=== PATIENT | male | born 1950 | race Caucasian/White ===

== ENCOUNTER 2016-08-28 03:45 | Emergency (ER) | payer OTHER ==
[~2016-08-28] VITALS: Ht 193 cm; Wt 99.4 kg
[2016-08-28 05:25] LABS: BLOOD UREA NITROGEN 14 mg/dL (7-18)
[2016-08-28] MEDS ORDERED: BACITRACIN ZINC OINT 500U/GM, 0.9 GM ONE (05:35)
[2016-08-28 06:30] VITALS: BP 125/83
== END 2016-08-28 07:09 | disposition home or self-care (01) ==
LOC: ED 06:15
DX: S20.211A Contusion of right front wall of thorax, initial encounter (principal); F10.20 Alcohol dependence, uncomplicated; S50.311A Abrasion of right elbow, initial encounter; S80.812A Abrasion, left lower leg, initial encounter; W18.30XA Fall on same level, unspecified, initial encounter; Y93.89 Activity, other specified; Y99.8 Other external cause status; Y92.89 Other specified places as the place of occurrence of the external cause
CPT/HCPCS: 36415; 70450; 71020; 80048; 82040; 85025

== ENCOUNTER 2016-10-23 08:51 | Inpatient (IN) | payer OTHER ==
[~2016-10-23] VITALS: Ht 193 cm; Wt 100.3 kg
[2016-10-23] MEDS ORDERED: MAGNESIUM SULFATE 1 GM, THIAMINE 100 MG, FOLIC ACID 1 MG, MVI ADULT 10 ML in SODIUM CHL... IV ONE (09:30)
[2016-10-23] MEDS ORDERED: SODIUM CHLORIDE FLUSH 10ML SYR IVF ONE (09:30)
[2016-10-23] MEDS ORDERED: LORazepam 2 MG/ML, 1ML IVPush ONE (09:30)
[2016-10-23] MEDS ORDERED: LORazepam 2 MG/ML, 1ML ONE (10:07)
[2016-10-23 10:11] LABS: ASPARTATE AMINO TRANSFERASE 116 U/L (15-37); BLOOD UREA NITROGEN 16 mg/dL (7-18)
[2016-10-23] MEDS ORDERED: MAGNESIUM SULFATE PMX 2GM/50ML 50 ML IV ONE (10:30)
[2016-10-23] MEDS ORDERED: FUROSEMIDE 40 MG/4 ML IV ONE (10:30)
[2016-10-23] MEDS ORDERED: FUROSEMIDE 40 MG/4 ML ONE (10:30)
[2016-10-23 11:03] LABS: DIFF TOTAL CELLS COUNTED 100 CELL DIFF
[2016-10-23 11:13] LABS: ANISOCYTOSIS 1+; POLYCHROMASIA 2+
[2016-10-23] MEDS ORDERED: DOCUSATE 100 MG CAPSULE PO PRN (11:30)
[2016-10-23 11:36] LABS: VERIFY COUNTS? YES
[2016-10-23] MEDS ORDERED: LIDOCAINE 1%, 20ML ONE (11:36)
[2016-10-23 11:54] VITALS: BP 116/76
[2016-10-23] MEDS ORDERED: LORazepam 0.5MG TABLET PO PRN (12:00)
[2016-10-23] MEDS ORDERED: LORazepam 1MG TABLET PO PRN ×4 (12:00)
[2016-10-23] MEDS ORDERED: LORazepam 2 MG/ML, 1ML IV PRN ×5 (12:00)
[2016-10-23 12:37] VITALS: BP 108/70
[2016-10-23 12:54] LABS: HEPATITIS C VIRUS ANTIBODY Nonreactive (Nonreactive)
[2016-10-23] MEDS: SPIRONOLACTONE 25 MG TABLET PO SCH (12:57)
[2016-10-23] MEDS: ENOXAPARIN 40 MG/0.4 ML SQ SCH (12:57)
[2016-10-23] MEDS: PANTOPRAZOLE 40 MG IV IVPush SCH (12:57)
[2016-10-23] MEDS ORDERED: MULTIVITAMIN 1 TABLET PO ONE (14:00)
[2016-10-23] MEDS ORDERED: FOLIC ACID 1 MG TABLET PO ONE (14:00)
[2016-10-23] MEDS ORDERED: THIAMINE 100MG TABLET PO ONE (14:00)
[2016-10-23 18:35] VITALS: BP_SYST 88; BP_SYST 89; BP_DIAS 53; BP_DIAS 57
[2016-10-24 01:35] VITALS: BP 91/51
[2016-10-24 05:10] LABS: ASPARTATE AMINO TRANSFERASE 92 U/L (15-37); BLOOD UREA NITROGEN 16 mg/dL (7-18)
[2016-10-24 05:36] LABS: DIFF TOTAL CELLS COUNTED 100 CELL DIFF
[2016-10-24 05:40] LABS: ANISOCYTOSIS 1+; POLYCHROMASIA 1+; VERIFY COUNTS? YES
[2016-10-24 07:05] VITALS: BP 96/61
[2016-10-24] MEDS: FOLIC ACID 1 MG TABLET PO SCH (08:08)
[2016-10-24] MEDS: MULTIVIT.W/IRON, MINERALS ORAL SOL PO SCH (08:08)
[2016-10-24] MEDS: THIAMINE 100MG TABLET PO SCH (08:08)
[2016-10-24] MEDS: SPIRONOLACTONE 25 MG TABLET PO SCH (08:08)
[2016-10-24] MEDS: FUROSEMIDE 20 MG/2 ML IV SCH (08:08)
[2016-10-24] MEDS: PANTOPRAZOLE 40 MG IV IVPush SCH (08:08)
[2016-10-24] MEDS ORDERED: MAGNESIUM SULFATE PMX 2GM/50ML 50 ML IV ONE (09:30)
[2016-10-24] MEDS: ENOXAPARIN 40 MG/0.4 ML SQ SCH (11:41)
[2016-10-24 12:54] VITALS: BP 95/61
[2016-10-24] MEDS ORDERED: POTASSIUM PHOSPHATE 22 MEQ in SODIUM CHLORIDE 0.9% 500 ML IV ONE (14:00)
[2016-10-24 20:49] VITALS: BP 97/59
[2016-10-25 02:00] VITALS: BP 98/66
[2016-10-25 05:42] LABS: ASPARTATE AMINO TRANSFERASE 85 U/L (15-37); BLOOD UREA NITROGEN 15 mg/dL (7-18)
[2016-10-25 06:35] VITALS: BP 100/65
[2016-10-25] MEDS: SPIRONOLACTONE 25 MG TABLET PO SCH (08:38)
[2016-10-25] MEDS: THIAMINE 100MG TABLET PO SCH (08:38)
[2016-10-25] MEDS: PANTOPROZOLE 40MG TABLET PO SCH (08:38)
[2016-10-25] MEDS: FOLIC ACID 1 MG TABLET PO SCH (08:38)
[2016-10-25] MEDS: MULTIVIT.W/IRON, MINERALS ORAL SOL PO SCH (08:38)
[2016-10-25] MEDS: FUROSEMIDE 20 MG/2 ML IV SCH (08:41)
[2016-10-25 12:03] VITALS: BP 104/67
[2016-10-25] MEDS: ENOXAPARIN 40 MG/0.4 ML SQ SCH (17:15)
[2016-10-25 20:31] VITALS: BP 105/65
[2016-10-26 00:38] VITALS: BP 102/66
[2016-10-26 05:40] LABS: ASPARTATE AMINO TRANSFERASE 85 U/L (15-37); BLOOD UREA NITROGEN 14 mg/dL (7-18)
[2016-10-26 07:08] VITALS: BP 98/56
[2016-10-26] MEDS ORDERED: SPIR25TA PO (07:57)
[2016-10-26] MEDS ORDERED: FURO-92 PO (07:57)
[2016-10-26] MEDS: THIAMINE 100MG TABLET PO SCH (08:38)
[2016-10-26] MEDS: SPIRONOLACTONE 25 MG TABLET PO SCH (08:38)
[2016-10-26] MEDS: FOLIC ACID 1 MG TABLET PO SCH (08:38)
[2016-10-26] MEDS: PANTOPROZOLE 40MG TABLET PO SCH (08:38)
[2016-10-26] MEDS: FUROSEMIDE 20 MG/2 ML IV SCH (08:39)
[2016-10-26] MEDS: MULTIVIT.W/IRON, MINERALS ORAL SOL PO SCH (08:39)
[2016-10-26 12:15] VITALS: BP 102/63
== END 2016-10-26 13:26 | disposition home or self-care (01) | DRG 432 ==
LOC: ED 10:11 → EDIP 10:35 → 4WST 11:41
PROVIDERS: ADMIT Hospitalist; ATTEND Internal Medicine
PROC: 0W9G3ZZ Drainage of Peritoneal Cavity, Percutaneous Approach (ICD-10-PCS; principal; 2016-10-24)
DX: K70.31 Alcoholic cirrhosis of liver with ascites (principal); K85.90 Acute pancreatitis without necrosis or infection, unspecified; E43 Unspecified severe protein-calorie malnutrition; R65.10 Systemic inflammatory response syndrome (SIRS) of non-infectious origin without acute organ dysfunction; E87.1 Hypo-osmolality and hyponatremia; J98.11 Atelectasis; D68.9 Coagulation defect, unspecified; K86.1 Other chronic pancreatitis; E83.42 Hypomagnesemia; Z66 Do not resuscitate; F17.210 Nicotine dependence, cigarettes, uncomplicated; D53.9 Nutritional anemia, unspecified; E53.8 Deficiency of other specified B group vitamins; E83.39 Other disorders of phosphorus metabolism; Z80.0 Family history of malignant neoplasm of digestive organs; Z88.0 Allergy status to penicillin; Z71.6 Tobacco abuse counseling; Z71.41 Alcohol abuse counseling and surveillance of alcoholic
CPT/HCPCS: 36415; 49083; 71010; 76700; 80053; 80074; 81003; 82010; 82042; 82150; 82247; 82248; 82607; 82746; 82945; 83615; 83690; 83735; 83880; 83986; 84100; 84157; 84443; 85025; 85610; 87070; 87205; 89051; 93005; 93306; 96374; 96375; J1650; J1940; J3490; C9113; J2060; J3475; J7040